=== PATIENT | female | born 1955 | race Caucasian/White ===

== ENCOUNTER 2016-08-21 09:42 | Emergency (ER) | payer OTHER ==
--- NOTE | 2016-08-21 09:51 | PDOC ---
History of Present Illness - General Stated Complaint: CHEST PAIN, RT SIDE NUMBNESS Time Seen by Provider: 08/21/16 09:46 Past History - Past Medical History Allergies/Adverse Reactions: Allergies Allergy/AdvReac Type Severity Reaction Status Date / Time No Known Allergies Allergy Verified 08/21/16 09:58 Home Medications: Ambulatory Orders Ranitidine [Zantac -] 150 mg PO BID #21 tablet 08/21/16 - Psycho/Social/Smoking Cessation Hx Suicidal Ideation: No Smoking History: Never smoked Hx Alcohol Use: No Drug/Substance Use Hx: No *Physical Exam - Vital Signs Last Vital Signs Temp Pulse Resp BP Pulse Ox 97.9 F 69 16 130/77 97 08/21/16 13:57 08/21/16 13:57 08/21/16 13:57 08/21/16 13:57 08/21/16 13:57 Heart Score/ECG Review - ECG Impressions Comment:: 08/21/16 10:44 Twelve-lead EKG was performed and reviewed by me. There is normal sinus rhythm with a normal rate. Rate of 67 The axis is normal. The intervals are normal. There is normal R wave progression There are no ST or T wave abnormalities. Impression: Normal twelve-lead EKG ED Treatment Course - LABORATORY CBC & Chemistry Diagram: 08/21/16 10:45 08/21/16 10:45 - ADDITIONAL ORDERS Additional order review: 08/21/16 10:45 RBC 4.71 MCV 91.2 MCHC 33.4 RDW 12.5 MPV 9.8 Neutrophils % 59.9 Lymphocytes % 26.7 Monocytes % 10.6 H Eosinophils % 1.9 Basophils % 0.9 - RADIOLOGY Radiology Studies Ordered: Category Date Time Status RIBS BILATERAL [RAD] Stat Radiology 08/21/16 10:36 Completed SPINE-THORACIC [RAD] Stat Radiology 08/21/16 10:36 Completed - Medications Given in the ED: ED Medications Discontinued Medications Generic Name Dose Route Start Last Admin Trade Name Freq PRN Reason Stop Dose Admin Al Hydroxide/Mg Hydroxide 30 ml 08/21/16 11:35 08/21/16 12:24 Mylanta Suspension - PO 08/21/16 11:36 30 ml ONCE ONE Administration Famotidine/Sodium Chloride 20 50 mls @ 100 mls/hr 08/21/16 11:35 08/21/16 12:24 mg/ Miscellaneous IVPB 08/21/16 12:04 100 mls/hr ONCE ONE Administration Medical Decision Making - Medical Decision Making 08/21/16 10:37 The patient was seen and evaluated in conjunction with CAROLANN Pizano under my direct supervision, ancillary studies were reviewed. I agree with the plan as outlined by CAROLANN Pizano. 61y F no significant pmx presents with chest/abd pain. The patient was was climbing on a chair to reach something several days ago, and the chair tipped over and the pt fell, landing on her upper abdomen striking the back of the chair. he pt was feeling well prior to the fall and denies any dizzness, sob, cp , n/v. daughter notes the pt had been complaining of diarrhea the few days prior to the fall. The pt states the pain has been gradually getting worse over the past few days. The pt also endorses a tingling sensation to her the index through pinky on the left (non on her arm). Pt denies any headache, neck pain, back pain. n/v, lower abdominal pain, hip pain. The pt was able to ambulate the past few days. She also took some otc pain medication (aspirin 500mg) with mild improvement. pt denies any chest pain. on exam pt has mild tenderness to her upper thoracic back (~T3-4), tenderness to her b/l rib region - no signs of ecchymosis, erythema, stepoffs noted. abd is soft nontender without rebound/guarding, no signs of ecchymosis noted on back or abdomen. history taking in [facility] with assistance of daugther with permission of the patient will ck xrays of ribs/chest/thoracic spine will give meds for pain willc k labs and ekg to r/o acs suspect her sypmtoms are traumatic in nature 08/21/16 13:15 The patient is feeling improved. labs and xrays are negative suspect there is a combination of msk pain secondary to the fall as well as component of gerd will discharge the patient to fu with pmd return precautions were discussed I discussed the physical exam findings, ancillary test results and final diagnoses with the patient. I answered all of the patient's questions. The patient was satisfied with the care received and felt comfortable with the discharge plan and treatment plan. The patient will call their primary care physician within 24 hours to arrange follow-up and will return to the Emergency Department with any new, persistent or worsening symptoms. *DC/Admit/Observation/Transfer Diagnosis at time of Disposition: GERD (gastroesophageal reflux disease) - Discharge Dispostion Disposition: HOME Condition at time of disposition: Improved - Prescriptions Prescriptions: Ranitidine [Zantac -] 150 mg PO BID #21 tablet - Referrals Referrals: Lucas Swanson [Primary Care Provider] - - Patient Instructions Printed Discharge Instructions: DI for Gastroesophageal Reflux Disease (GERD), DI for Atypical Chest Pain Additional Instructions: You have acid reflux. Avoid eating spicy foods. You can take Zantac once a day to help with the symptoms. Your x-rays done today in the ED did not show any fractures. Drink plenty of water. Follow up with your primary care doctor in one week. If you have worsening chest pain, shortness of breath or nausea or vomiting, return to the ED
[2016-08-21 10:06] VITALS: BMI 34.6
[2016-08-21 11:18] LABS: BASOPHIL 0.9 % (0-2.0); EOSINOPHIL 1.9 % (0-4.5); MCH 30.5 pg (25.7-33.7); MCHC 33.4 g/dl (32.0-36.0); MEAN CELL VOLUME 91.2 fl (80-96); MEAN PLT VOLUME 9.8 fl (7.5-11.1); NEUTROPHILS 59.9 % (42.8-82.8); PLATELET COUNT 231 K/MM3 (134-434); RDW 12.5 % (11.6-15.6); WHITE BLOOD COUNT 4.5 K/mm3 (4.0-10.0)
--- NOTE | 2016-08-21 11:33 | PDOC ---
History of Present Illness - General Chief Complaint: Chest Pain Stated Complaint: CHEST PAIN, RT SIDE NUMBNESS Time Seen by Provider: 08/21/16 09:46 History Source: Family (Daughter, translating for mother) - History of Present Illness Initial Comments: 08/21/16 11:33 Ms. Wilson is a 61 y/o female with no significant PMH presenting to the ED today complaining of chest pain. Her primary language is Abrahamsi, her daughter is available to translate. Pt. states that two days ago she was getting up out of a chair felt a little dizzy, and fell against the arms of the chair. She states she landed on her ribs. She is complaining of chest pain that is now radiating to her left arm, and back with some numbness in her left arm. Her pain is a 6/ 10 and she describes it as a burning pain. Pt. denies N/V/D, palpitations, SOB, wheezing and cough. No recent sick contacts. Denies fevers, chills, or weight change. Past History - Past Medical History Allergies/Adverse Reactions: Allergies Allergy/AdvReac Type Severity Reaction Status Date / Time No Known Allergies Allergy Verified 08/21/16 09:58 Home Medications: Ambulatory Orders NK [No Known Home Medication] 08/21/16 Other medical history: none - Psycho/Social/Smoking Cessation Hx Anxiety: No Suicidal Ideation: No Smoking History: Never smoked Have you smoked in the past 12 months: No Information on smoking cessation initiated: No Hx Alcohol Use: No Drug/Substance Use Hx: No Substance Use Type: None *Physical Exam - Vital Signs Last Vital Signs Temp Pulse Resp BP Pulse Ox 97.0 F L 76 20 128/76 98 08/21/16 09:50 08/21/16 10:09 08/21/16 10:09 08/21/16 10:09 08/21/16 10:09 - Physical Exam Comments: 08/21/16 11:49 GENERAL: The patient is awake, alert, and fully oriented, in no acute distress. HEAD: Normal with no signs of trauma. ENT: Pupils equal, round and reactive to light, extraocular movements intact, sclera anicteric, conjunctiva clear. Neck supple. LUNGS: Clear to auscultation bilaterally. Normal excursion. No respiratory distress or use of accessory muscles. CV: RRR, S1/S2, no MRG. Cap refill < 2 sec. Pain with palpation of the ribs on the L side more than the right. ABDOMEN: Soft, non-distended, non-tender. EXTREMITIES: Normal range of motion, no edema. NEUROLOGICAL: Normal speech, normal gait. CN II-XII grossly intact. PSYCH: Normal mood, normal affect. SKIN: Warm, dry, normal turgor, no rashes or lesions noted. ED Treatment Course - LABORATORY CBC & Chemistry Diagram: 08/21/16 10:45 08/21/16 10:45 Medical Decision Making - Medical Decision Making 08/21/16 11:51 Pt. is a 61 y/o female presenting with chest pain after questionable mechanical fall at home. Will r/o trauma, ACS, an altered mental status or GI issue . Less likely an infection. 1. Will order CBC, CMP, UA, to evaluate for infection 2. EKG and Cardiac panel to r/o ACS 3. CXR, Rib x-ray to evaluate for trauma. 4. Will medicate for pain. Will re-evaluate. 08/21/16 12:40 EKG shows a sinus rhythm. No acute ischemic changes. Troponins are negative. 08/21/16 13:07 Pt. is feeling much better after the GI cocktail. She reports her pain is significantly less at this time. X-ray of the ribs show a potential rotator cuff tear. Pt. does not recall an injury but reports her R shoulder always hurting and that pain is different from the pain she was experiencing today. 08/21/16 13:45 Thoracic x-ray shows no fracture at this time. Likely MSK pain with GERD. Will plan to discharge home at this time. *DC/Admit/Observation/Transfer Diagnosis at time of Disposition: Gastroesophageal reflux disease Qualifiers: Esophagitis presence: esophagitis presence not specified Qualified Code(s): K21.9 - Gastro-esophageal reflux disease without esophagitis - Discharge Dispostion Disposition: HOME Condition at time of disposition: Improved Admit: No - Patient Instructions Printed Discharge Instructions: DI for Atypical Chest Pain, DI for Gastroesophageal Reflux Disease (GERD) Additional Instructions: You have acid reflux. Avoid eating spicy foods. You can take Zantac once a day to help with the symptoms. Your x-rays done today in the ED did not show any fractures. Drink plenty of water. Follow up with your primary care doctor in one week. If you have worsening chest pain, shortness of breath or nausea or vomiting, return to the ED
[2016-08-21] MEDS ORDERED: MAG HYDROX/AL HYDROX/SIMETH 355 ML ORAL.SUSP PO ONE (11:35)
[2016-08-21] MEDS ORDERED: FAMOTIDINE 20 MG/50 ML IVPB 20 MG in PREMIX 50 IVPB ONE (11:35)
[2016-08-21] MEDS ORDERED: MAG HYDROX/AL HYDROX/SIMETH 30 ML UNIT-DOSE CUP ONE (11:39)
[2016-08-21] MEDS ORDERED: FAMOTIDINE 20 MG/50 ML IVPB 50 ML IVPB ONE (11:39)
[2016-08-21 11:43] LABS: TROPONIN I < 0.02 ng/ml (0.00-0.05)
[2016-08-21 11:43] LABS: BILIRUBIN,TOTAL 0.4 mg/dL (0.2-1.0); CALCIUM 9.2 mg/dL (8.5-10.1); TOT PROT 7.9 g/dl (6.4-8.2)
[2016-08-21 13:22] LABS: URINE APPEARANCE CLEAR; URINE BILIRUBIN NEGATIVE (NEGATIVE); URINE BLOOD NEGATIVE (NEGATIVE); URINE COLOR STRAW; URINE GLUCOSE (UA) NEGATIVE (NEGATIVE); URINE KETONE NEGATIVE (NEGATIVE); URINE LEUK ESTERASE NEGATIVE (NEGATIVE); URINE NITRITE NEGATIVE (NEGATIVE); URINE PROTEIN NEGATIVE (NEGATIVE); URINE UROBILINOGEN NEGATIVE E.U./dl (0.2-1.0)
[2016-08-21 14:01] VITALS: BP 130/77; PULSE 69; TEMP 97.9
--- NOTE | 2016-08-21 15:46 | EKG ---
Test Reason : Blood Pressure : / mmHG Vent. Rate : 067 BPM Atrial Rate : 067 BPM P-R Int : 156 ms QRS Dur : 070 ms QT Int : 378 ms P-R-T Axes : 013 -02 032 degrees QTc Int : 399 ms NORMAL SINUS RHYTHM NORMAL ECG NO PREVIOUS ECGS AVAILABLE Confirmed by KIERRA ELIAS MD ([id number]) on 08/21/2016 3:46:01 PM Referred By: Confirmed By:KIERRA ELIAS MD
== END 2016-08-21 14:26 | disposition home or self-care (01) ==
LOC: JER 09:42
PROC: 3E033GC Introduction of Other Therapeutic Substance into Peripheral Vein, Percutaneous Approach (ICD-10-PCS; principal; 2016-08-21)
DX: G21.9 Secondary parkinsonism, unspecified (principal); M54.6 Pain in thoracic spine; W07.XXXA Fall from chair, initial encounter; Y93.89 Activity, other specified; Y92.038 Other place in apartment as the place of occurrence of the external cause
CPT/HCPCS: 36415; 71010-TC; 71111-TC; 72070-TC; 80053; 81003; 82550; 84484; 85025; 93005; 93010; 96365; 99285-25

== ENCOUNTER → 2017-02-20 | Emergency (ER) | payer OTHER ==
[~2017-02-20] MED LIST: ACETAMINOPHEN 325 MG TABLET (FP) ONE; ACETAMINOPHEN 500 MG TABLET (FP) PO ONE
[2017-02-20 21:19] VITALS: BP 142/72; PULSE 70; TEMP 97.9; BMI 33.9
--- NOTE | 2017-02-20 23:42 | PDOC ---
History of Present Illness - History of Present Illness Initial Comments: 02/20/17 23:54 61 year old female with no PMHx who presents to the ED with an episode of vomiting 3 days ago and right scapular pain, chest pain and abdominal pain for 3 days. Patient reports taking Tylenol and Motrin with no relief. Denies diarrhea, constipation. Allergies: Penicillin <Irene Sauceda - Last Filed: 02/20/17 23:54> <Dora Mensah - Last Filed: 02/21/17 00:50> - General Chief Complaint: Back Pain Stated Complaint: BACK PAIN Time Seen by Provider: 02/20/17 22:51 Past History <Irene Sauceda - Last Filed: 02/20/17 23:54> - Psycho/Social/Smoking Cessation Hx Anxiety: No Suicidal Ideation: No Smoking History: Never smoked Have you smoked in the past 12 months: No Hx Alcohol Use: No Drug/Substance Use Hx: No Substance Use Type: None <Dora Mensah - Last Filed: 02/21/17 00:50> - Past Medical History Allergies/Adverse Reactions: Allergies Allergy/AdvReac Type Severity Reaction Status Date / Time amoxicillin Allergy Verified 02/20/17 21:11 Home Medications: Ambulatory Orders NK [No Known Home Medication] 02/21/17 Review of Systems - Review of Systems Comments:: 02/20/17 23:54 CONSTITUTIONAL: Absent: fever, no chills, no fatigue EYES: Absent: visual changes ENT: Absent: ear pain, no sore throat CARDIOVASCULAR: Present: chest pain Absent: palpitations RESPIRATORY: Absent: cough, no SOB GI: Present: abdominal pain, vomiting Absent: constipation, no diarrhea GENITOURINARY: Absent: dysuria, no frequency, no hematuria MUSCULOSKELETAL: Present: right scapular pain Absent: back pain, no myalgia SKIN: Absent: rash NEURO: Absent: headache <Irene Sauceda - Last Filed: 02/20/17 23:54> *Physical Exam - Vital Signs Last Vital Signs Temp Pulse Resp BP Pulse Ox 97.9 F 70 18 142/72 98 02/20/17 21:11 02/20/17 21:11 02/20/17 21:11 02/20/17 21:11 02/20/17 21:11 - Physical Exam Comments: 02/20/17 23:54 GENERAL: Well-appearing, well-nourished. No apparent distress. HEENT: Normocephalic, atraumatic. PERRL, EOM intact. CARDIOVASCULAR: Normal S1, S2. Regular rate and rhythm. PULMONARY: Clear to auscultation bilaterally. ABDOMEN: Protuberant. Soft, non-tender. No guarding, no rebound. EXTREMITIES: Bilateral foot deformity since . Normal ROM in all four extremities. SKIN: Warm, dry. No rash NEUROLOGICAL: No focal neurological deficits. <Irene Sauceda - Last Filed: 02/20/17 23:54> - Vital Signs Last Vital Signs Temp Pulse Resp BP Pulse Ox 97.9 F 70 18 142/72 98 02/20/17 21:11 02/20/17 21:11 02/20/17 21:11 02/20/17 21:11 02/20/17 21:11 <Dora Mensah - Last Filed: 02/21/17 00:50> *DC/Admit/Observation/Transfer - Attestations Scribe Attestion: 02/20/17 23:54 Documentation prepared by Irene Sauceda, acting as manager medical affairs for Dora Mensah MD. <Irene Sauceda - Last Filed: 02/20/17 23:54> <Dora Mensah - Last Filed: 02/21/17 00:50> Diagnosis at time of Disposition: Back pain Qualifiers: Back pain location: thoracic back pain Chronicity: chronic Back pain laterality : right Qualified Code(s): M54.6 - Pain in thoracic spine; G89.29 - Other chronic pain - Discharge Dispostion Disposition: HOME Condition at time of disposition: Stable - Referrals Referrals: Lucas Swanson [Primary Care Provider] - - Patient Instructions Printed Discharge Instructions: DI for Thoracic Back Pain Additional Instructions: please follow up with your regular physician return for any worsening symptoms
--- NOTE | 2017-02-21 13:21 | EKG ---
Test Reason : Blood Pressure : / mmHG Vent. Rate : 067 BPM Atrial Rate : 067 BPM P-R Int : 168 ms QRS Dur : 078 ms QT Int : 392 ms P-R-T Axes : 034 008 031 degrees QTc Int : 414 ms NORMAL SINUS RHYTHM NORMAL ECG WHEN COMPARED WITH ECG OF 21-AUG-2016 09:58, NO SIGNIFICANT CHANGE WAS FOUND Confirmed by AMOS SINGH MD ([id number]) on 02/21/2017 1:20:53 PM Referred By: Confirmed By:AMOS SINGH MD
== END | disposition home or self-care (01) ==
LOC: JER 21:06
DX: M54.6 Pain in thoracic spine (principal); G89.29 Other chronic pain
CPT/HCPCS: 93005; 93010; 99282-25

== ENCOUNTER 2017-09-02 13:44 | Emergency (ER) | payer OTHER ==
[2017-09-02 14:14] VITALS: BMI 28.3
--- NOTE | 2017-09-02 14:55 | PDOC ---
History of Present Illness - General History Source: Patient Exam Limitations: No Limitations - History of Present Illness Initial Comments: 09/02/17 16:24 The patient is a 62-year-old female with no significant past medical history, and presents to the emergency department with dizziness, nausea, and vomiting since last night. Patient speaks Farsi and her daughter translated. She reports she was laying in bed when she began to feel like the room was spinning, which was followed by nausea and vomiting. She reports 4 episodes of non-bloody vomiting of a yellow substance. She also notes mild diffuse mid-epigastric abdominal pain that is reproducible with touch. She states the nausea and dizziness is worse when supine and when moving her eyes. She reports associated visual changes. She did not take any medication for this. She states this is not the first time this has happened. The patient denies chest pain, shortness of breath, and headache. The patient denies fever, chills, ear pain, diarrhea and constipation. Denies fall, syncope , or LOC. The patient denies dysuria, frequency, urgency and hematuria. Allergies: amoxicillin Past Surgical History: None reported Social History: No toxic habits reported PCP: Dr. Swanson <Una Montes - Last Filed: 09/02/17 16:24> <Devorah Lei - Last Filed: 09/02/17 19:06> - General Chief Complaint: Nausea/Vomiting Stated Complaint: FEVER, DIZZINESS Time Seen by Provider: 09/02/17 14:55 Past History <Una Montes - Last Filed: 09/02/17 16:24> - Past Medical History COPD: No - Suicide/Smoking/Psychosocial Hx Smoking History: Never smoked Have you smoked in the past 12 months: No Hx Alcohol Use: No Drug/Substance Use Hx: No Substance Use Type: None <Devorah Lei - Last Filed: 09/02/17 19:06> - Past Medical History Allergies/Adverse Reactions: Allergies Allergy/AdvReac Type Severity Reaction Status Date / Time amoxicillin Allergy Verified 09/02/17 14:14 Home Medications: Ambulatory Orders Meclizine HCl 25 mg PO QID PRN #30 tab.chew 09/02/17 Ondansetron [Zofran Odt -] 4 mg SL TID PRN #10 od.tablet 09/02/17 Review of Systems - Review of Systems Able to Perform ROS?: Yes Comments:: 09/02/17 16:24 GENERAL/CONSTITUTIONAL: No fever or chills. No weakness. HEAD, EYES, EARS, NOSE AND THROAT: No ear pain or discharge. No sore throat. CARDIOVASCULAR: No chest pain or shortness of breath. RESPIRATORY: No cough, wheezing, or hemoptysis. GASTROINTESTINAL: (+) Nausea, (+) vomiting. No diarrhea or constipation. GENITOURINARY: No dysuria, frequency, or change in urination. MUSCULOSKELETAL: No joint or muscle swelling or pain. No neck or back pain. SKIN: No rash NEUROLOGIC: (+) Dizziness. (+) Vertigo. No headache, loss of consciousness, or change in strength/sensation. ENDOCRINE: No increased thirst. No abnormal weight change. HEMATOLOGIC/LYMPHATIC: No anemia, easy bleeding, or history of blood clots. ALLERGIC/IMMUNOLOGIC: No hives or skin allergy. <Montes,Una - Last Filed: 09/02/17 16:24> *Physical Exam - Vital Signs Last Vital Signs Temp Pulse Resp BP Pulse Ox 97.7 F 79 18 135/79 99 09/02/17 14:11 09/02/17 14:11 09/02/17 14:11 09/02/17 14:11 09/02/17 14:11 - Physical Exam Comments: 09/02/17 16:24 GENERAL: Awake, alert and oriented x3, in no acute distress HEAD: No signs of trauma EYES: PERRLA, EOMI, sclera anicteric, conjunctiva clear ENT: Auricles normal inspection, hearing grossly normal, nares patent, oropharynx clear without exudates. Moist mucosa. (+) TM are impacted with cerumen bilaterally. NECK: Normal ROM, supple, no lymphadenopathy, JVD, or masses LUNGS: Breath sounds equal, clear to auscultation bilaterally. No wheezes, and no crackles HEART: Regular rate and rhythm, normal S1 and S2, no murmurs, rubs or gallops ABDOMEN: Soft, nontender, non-distended, normoactive bowel sounds. No guarding , no rebound. No masses EXTREMITIES: Normal range of motion, no edema. No clubbing or cyanosis. No cords, erythema, or tenderness NEUROLOGICAL: Cranial nerves II through XII grossly intact. Normal speech, normal gait. 5/5 strength in bilateral upper and lower extremities. Intact rapid alternating movements. Heel goldstein normal. Ambulatory with steady gait. SKIN: Warm, Dry, normal turgor, no rashes or lesions noted. <Una Montes - Last Filed: 09/02/17 16:24> - Vital Signs Last Vital Signs Temp Pulse Resp BP Pulse Ox 97.7 F 79 18 135/79 99 09/02/17 14:11 09/02/17 14:11 09/02/17 14:11 09/02/17 14:11 09/02/17 14:11 <Devorah Lei - Last Filed: 09/02/17 19:06> ED Treatment Course - LABORATORY CBC & Chemistry Diagram: 09/02/17 15:45 09/02/17 15:45 - ADDITIONAL ORDERS Additional order review: 09/02/17 15:45 RBC 4.81 MCV 85.8 MCHC 33.5 RDW 12.9 MPV 8.6 D Neutrophils % 69.3 Lymphocytes % 24.8 Monocytes % 4.1 Eosinophils % 1.2 Basophils % 0.6 - Medications Given in the ED: ED Medications Discontinued Medications Generic Name Dose Route Start Last Admin Trade Name Freq PRN Reason Stop Dose Admin Meclizine HCl 25 mg 09/02/17 15:43 09/02/17 16:15 Antivert - PO 09/02/17 15:44 25 mg ONCE ONE Administration Ondansetron HCl 4 mg 09/02/17 15:43 09/02/17 15:56 Zofran Injection IVPUSH 09/02/17 15:44 4 mg ONCE ONE Administration <Una Montes - Last Filed: 09/02/17 16:24> - LABORATORY CBC & Chemistry Diagram: 09/02/17 15:45 09/02/17 15:45 <Devorah Lei - Last Filed: 09/02/17 19:06> Medical Decision Making - Medical Decision Making 09/02/17 17:54 Pt present to the ED complaining of vertigo that started yesterday, accompanied by nausea and multiple episodes of vomiting. Patient has a history of similar episodes in the past that have resolved spontaneously. PAtient is able to ambulate with a steady gait and is neurologically intact. Vertigo is very positional. Symptoms are most consistent with BPV. Given meclizine and zogran without relief of her symptoms. Will treat with reglan and ativan and reassess. Will admit for observation if symptoms persist. 09/02/17 18:36 Patient feels improved and ready to go home. WIll discharge home with rx for meclizine and zofran. Instructed to follow up with her PMD tomorrow AM. <Devorah Lei - Last Filed: 09/02/17 19:06> *DC/Admit/Observation/Transfer - Attestations Scribe Attestion: 09/02/17 16:25 Documentation prepared by Una Montes, acting as medical assisting program director for Devorah Lei MD, /DO. <Una Montes - Last Filed: 09/02/17 16:24> - Discharge Dispostion Admit: No <Devorah Lei - Last Filed: 09/02/17 19:06> Diagnosis at time of Disposition: Vertigo - Discharge Dispostion Disposition: HOME Condition at time of disposition: Good - Prescriptions Prescriptions: Meclizine HCl 25 mg PO QID PRN #30 tab.chew PRN Reason: Vertigo Ondansetron [Zofran Odt -] 4 mg SL TID PRN #10 od.tablet PRN Reason: Nausea And/Or Vomiting - Referrals Referrals: Lucas Swanson [Primary Care Provider] - - Patient Instructions Printed Discharge Instructions: DI for Vertigo Additional Instructions: return to the ED for severe headache, severe nausea and vomiting, unable to walk , weakness on one side of your body or face, other new or changing symptoms. Follow up with your doctor tomorrow AM. - Post Discharge Activity Forms/Work/School Notes: Back to Work, Parent(s) Back to Work Note
[2017-09-02] MEDS ORDERED: MECLIZINE HCL 25 MG TABLET (FP) PO ONE (15:43)
[2017-09-02] MEDS ORDERED: ONDANSETRON 4 MG/2 ML VIAL IVPUSH ONE (15:43)
[2017-09-02] MEDS ORDERED: ONDANSETRON 4 MG/2 ML VIAL ONE (15:52)
[2017-09-02] MEDS ORDERED: MECLIZINE HCL 25 MG TABLET (FP) ONE (15:52)
[2017-09-02 15:56] LABS: BASO % 0.6 % (0-2.0); EOS % 1.2 % (0-4.5); HEMATOCRIT 41.2 % (32.4-45.2); HEMOGLOBIN 13.8 GM/dL (10.7-15.3); LYMPH % 24.8 % (8-40); MCH 28.8 pg (25.7-33.7); MCHC 33.5 g/dl (32.0-36.0); MEAN CELL VOLUME 85.8 fl (80-96); MEAN PLT VOLUME 8.6 fl (7.5-11.1); MONO % 4.1 % (3.8-10.2); NEUT % 69.3 % (42.8-82.8); PLATELET COUNT 188 K/MM3 (134-434); RBC 4.81 M/mm3 (3.60-5.2); RDW 12.9 % (11.6-15.6); WHITE BLOOD COUNT 6.7 K/mm3 (4.0-10.0)
[2017-09-02 16:38] LABS: ALBUMIN 4.3 g/dl (3.4-5.0); ANION GAP 9 (8-16); BILIRUBIN,TOTAL 0.3 mg/dL (0.2-1.0); BLOOD UREA NITROGEN 18 mg/dL (7-18); CALCIUM 8.5 mg/dL (8.5-10.1); CHLORIDE 108 mmol/L (98-107); CO2 22 mmol/L (21-32); CREATININE 0.6 mg/dL (0.55-1.02); GLUCOSE,RANDOM 99 mg/dL (74-106); POTASSIUM 4.2 mmol/L (3.5-5.1); SGOT/AST 15 U/L (15-37); SGPT/ALT 15 U/L (12-78); SODIUM 139 mmol/L (136-145); TOT PROT 7.6 g/dl (6.4-8.2)
[2017-09-02 16:39] LABS: ALK PHOS 112 U/L (45-117)
[2017-09-02] MEDS ORDERED: diazePAM CARPU-JECT 10 MG/2 ML DISP.SYRIN IVPUSH ONE (17:01)
[2017-09-02] MEDS ORDERED: METOCLOPRAMIDE HCL INJECTION 10 MG/2 ML VIAL IVPUSH ONE (17:01)
[2017-09-02] MEDS ORDERED: METOCLOPRAMIDE HCL INJECTION 10 MG/2 ML VIAL ONE (17:40)
[2017-09-02] MEDS ORDERED: SODIUM CHLORIDE 0.9% 500 ML INFUS.BAG IV ONE (18:03)
[2017-09-02 19:18] VITALS: BP 126/77; PULSE 68; TEMP 98.2
--- NOTE | 2017-09-03 23:26 | EKG ---
Test Reason : Blood Pressure : / mmHG Vent. Rate : 060 BPM Atrial Rate : 060 BPM P-R Int : 176 ms QRS Dur : 080 ms QT Int : 448 ms P-R-T Axes : 034 063 077 degrees QTc Int : 448 ms NORMAL SINUS RHYTHM NORMAL ECG WHEN COMPARED WITH ECG OF 21-FEB-2017 00:22, T WAVE VARIATION Confirmed by KIERRA ELIAS MD ([id number]) on 09/03/2017 11:26:01 PM Referred By: Confirmed By:KIERRA ELIAS MD
== END 2017-09-02 19:18 | disposition home or self-care (01) ==
LOC: JER 13:44
PROC: 3E033NZ Introduction of Analgesics, Hypnotics, Sedatives into Peripheral Vein, Percutaneous Approach (ICD-10-PCS; principal; 2017-09-02)
PROC: 3E033GC Introduction of Other Therapeutic Substance into Peripheral Vein, Percutaneous Approach (ICD-10-PCS; 2017-09-02)
PROC: 3E033GC Introduction of Other Therapeutic Substance into Peripheral Vein, Percutaneous Approach (ICD-10-PCS; 2017-09-02)
DX: H81.10 Benign paroxysmal vertigo, unspecified ear (principal)
CPT/HCPCS: 36415; 80053; 85025; 93005; 93010; 96374; 96375; 99283-25

== ENCOUNTER 2017-09-11 19:37 | Emergency (ER) | payer OTHER ==
[2017-09-11 19:48] VITALS: BP 143/76; PULSE 73; TEMP 97.9; BMI 24.7
--- NOTE | 2017-09-11 19:51 | PDOC ---
Rapid Medical Evaluation Chief Complaint: Cold Symptoms Time Seen by Provider: 09/11/17 19:49 Medical Evaluation: Allergies Allergy/AdvReac Type Severity Reaction Status Date / Time amoxicillin Allergy Verified 09/11/17 19:44 Vital Signs Temp Pulse Resp BP Pulse Ox 97.9 F 73 20 143/76 97 09/11/17 19:44 09/11/17 19:44 09/11/17 19:44 09/11/17 19:44 09/11/17 19:44 09/11/17 19:50 I have performed a brief in-person evaluation of this patient. The patient presents with a chief complaint of: productive cough x 1 week Pertinent physical exam findings: Lungs CTAB. I have ordered the following: CXR The patient will proceed to the ED for further evaluation. Discharge Disposition - Diagnosis Cough - Referrals - Patient Instructions - Post Discharge Activity
--- NOTE | 2017-09-11 21:13 | PDOC ---
History of Present Illness - General Chief Complaint: Cold Symptoms Stated Complaint: COUGHING Time Seen by Provider: 09/11/17 19:49 History Source: Patient Exam Limitations: No Limitations - History of Present Illness Initial Comments: 09/11/17 21:16 62-year-old female presents the ED with complaints of productive cough which she states is yellow and worsen in the a.m. hours. Patient denies chest pain, shortness of breath, fever, chills. Patient denies history of diabetes, smoking history, or pulmonary disease. Timing/Duration: reports: week Severity: reports: mild Possible Cause: Yes: no prior episodes Associated Symptoms: reports: cough Past History - Travel Traveled outside of the country in the last 30 days: No - Past Medical History Allergies/Adverse Reactions: Allergies Allergy/AdvReac Type Severity Reaction Status Date / Time amoxicillin Allergy Verified 09/11/17 19:44 Home Medications: Ambulatory Orders NK [No Known Home Medication] 09/11/17 COPD: No Other medical history: Pt denies - Suicide/Smoking/Psychosocial Hx Smoking History: Never smoked Have you smoked in the past 12 months: No Information on smoking cessation initiated: No Hx Alcohol Use: No Drug/Substance Use Hx: No Substance Use Type: None Patient Lives Alone: No Lives with/in: daughter Review of Systems - Review of Systems Able to Perform ROS?: Yes Respiratory: Yes: Productive cough *Physical Exam - Vital Signs Last Vital Signs Temp Pulse Resp BP Pulse Ox 97.9 F 73 20 143/76 97 09/11/17 19:44 09/11/17 19:44 09/11/17 19:44 09/11/17 19:44 09/11/17 19:44 - Physical Exam General Appearance: Yes: Nourished, Appropriately Dressed. No: Apparent Distress HEENT: positive: Pharynx Normal Neck: positive: Normal Thyroid, Supple Respiratory/Chest: positive: Lungs Clear, Normal Breath Sounds. negative: Respiratory Distress, Accessory Muscle Use Cardiovascular: positive: Regular Rhythm, Regular Rate. negative: Murmur Integumentary: positive: Normal Color, Warm, Moist Neurologic: positive: Motor Strength 5/5 (ambulatory) Medical Decision Making - Medical Decision Making 09/11/17 21:19 Patient here for productive cough for the past week. Patient ordered a chest x- ray from [facility]. Chest x-ray shows no signs of pneumonia. Patient be treated for bronchitis a peribronchial congestion seen on x-ray *DC/Admit/Observation/Transfer Diagnosis at time of Disposition: Cough, Bronchitis - Discharge Dispostion Disposition: HOME Condition at time of disposition: Good - Referrals Referrals: Meme Calles DO [Staff Physician] - - Patient Instructions Printed Discharge Instructions: DI for Acute Bronchitis Additional Instructions: Please take antibiotics as prescribed until completed. Next and please also follow up with referred PAINTING MACHINE OPERATOR to discuss scheduling a mammogram and PAINTING MACHINE OPERATOR exam. - Post Discharge Activity
== END 2017-09-11 21:27 | disposition home or self-care (01) ==
LOC: JERFT 19:37
DX: J40 Bronchitis, not specified as acute or chronic (principal)
CPT/HCPCS: 71046-TC-FY; 99281-25

== ENCOUNTER 2017-11-24 14:32 | Observation (INO) | payer OTHER ==
--- NOTE | 2017-11-24 14:50 | PDOC ---
History of Present Illness - General History Source: Family Exam Limitations: No Limitations - History of Present Illness Initial Comments: 11/24/17 15:51 The patient is a 62-year-old female, primarily Farsi-speaking, accompanied by daughter, with a significant past medical history of vertigo, who presents to the ED with 1 week of dizziness and chest pain. She describes her dizziness as the "room spinning." Dizziness is worse in the morning, when she is lying down, with positional changes, and when she turns her head. She reports 2 days of nausea and vomiting; no blood noted. For the past week the patient has been experiencing chest pain that radiates to her right breast. She denies having having a previous mammogram. The patient reports dysuria and headache. The patient denies any fever, chills, diarrhea, or abdominal pain. Denies any tunnel vision. Allergies: amoxicillin PCP: Dr. Lucas Swanson <Nadya Elder - Last Filed: 11/24/17 15:51> <Reba Bardales - Last Filed: 11/24/17 16:46> - General Chief Complaint: Lightheaded Stated Complaint: NAUSEA, DIZZINESS Time Seen by Provider: 11/24/17 14:49 Past History <Nadya Elder - Last Filed: 11/24/17 15:51> - Past Medical History COPD: No - Suicide/Smoking/Psychosocial Hx Smoking History: Never smoked Have you smoked in the past 12 months: No Hx Alcohol Use: No Drug/Substance Use Hx: No Substance Use Type: None <Reba Bardales - Last Filed: 11/24/17 16:46> - Past Medical History Allergies/Adverse Reactions: Allergies Allergy/AdvReac Type Severity Reaction Status Date / Time amoxicillin Allergy Verified 11/24/17 14:39 Home Medications: Ambulatory Orders Azithromycin [Zithromax Tri-Drake (3 DAYS) -] 500 mg PO DAILY #3 tablet 09/11/17 Review of Systems - Review of Systems Able to Perform ROS?: Yes Comments:: 11/24/17 15:52 GENERAL/CONSTITUTIONAL: No fever or chills. No weakness. HEAD, EYES, EARS, NOSE AND THROAT: No change in vision. No ear pain or discharge. No sore throat. CARDIOVASCULAR: (+)Chest pain. No shortness of breath. RESPIRATORY: No cough, wheezing, or hemoptysis. GASTROINTESTINAL: (+)Nausea, vomiting. No diarrhea or constipation. GENITOURINARY: (+)dysuria. No frequency, or change in urination. MUSCULOSKELETAL: No joint or muscle swelling or pain. No neck or back pain. SKIN: No rash NEUROLOGIC: (+)headache, vertigo. No loss of consciousness, or change in strength/sensation. ENDOCRINE: No increased thirst. No abnormal weight change. HEMATOLOGIC/LYMPHATIC: No anemia, easy bleeding, or history of blood clots. ALLERGIC/IMMUNOLOGIC: No hives or skin allergy. <Nadya Elder - Last Filed: 11/24/17 15:51> *Physical Exam - Vital Signs Last Vital Signs Temp Pulse Resp BP Pulse Ox 98.4 F 66 18 130/57 99 11/24/17 14:36 11/24/17 14:36 11/24/17 14:36 11/24/17 14:36 11/24/17 14:36 - Physical Exam Comments: 11/24/17 15:53 GENERAL: Awake, alert, and fully oriented, in no acute distress HEAD: No signs of trauma EYES: PERRLA, EOMI, sclera anicteric, conjunctiva clear. No nystagmus. ENT: Auricles normal inspection, hearing grossly normal, nares patent, oropharynx clear without exudates. Moist mucosa NECK: Normal ROM, supple, no lymphadenopathy, JVD, or masses LUNGS: Breath sounds equal, clear to auscultation bilaterally. No wheezes, and no crackles HEART: Regular rate and rhythm, normal S1 and S2, no murmurs, rubs or gallops ABDOMEN: (+)Mild diffuse tenderness. Soft, normoactive bowel sounds. No guarding, no rebound. No masses MSK: (+)Right rib pain under breast. No palpable masses. No peau d'orange. EXTREMITIES: Normal range of motion, no edema. No clubbing or cyanosis. No cords, erythema, or tenderness NEUROLOGICAL: Cranial nerves II through XII grossly intact. 5/5 strength in all extremities. Sensation intact. Normal speech, normal gait SKIN: Warm, Dry, normal turgor, no rashes or lesions noted <Nadya Elder - Last Filed: 11/24/17 15:51> - Vital Signs Last Vital Signs Temp Pulse Resp BP Pulse Ox 98.4 F 66 18 130/57 99 11/24/17 14:36 11/24/17 14:36 11/24/17 14:36 11/24/17 14:36 11/24/17 14:36 <Reba Bardales - Last Filed: 11/24/17 16:46> ED Treatment Course - LABORATORY CBC & Chemistry Diagram: 11/24/17 15:50 11/24/17 15:50 <Reba Bardales - Last Filed: 11/24/17 16:46> Medical Decision Making - Medical Decision Making 11/24/17 15:41 a/p: 62yo female with cp x 1 week intermittently, vertigo, R breast pain -hx of vertigo but now with a drake and feels weaker on the R side -nonfocal neuro exam -no nystagmus and no increasing dizziness with eye movement -R rib ttp under the breast tissue, no masses palpated -intermittnet cp during this last week that the patient cannot describe -mild diffuse abd pain -will obtain labs, ekg, cxr, head ct -will monitor and reassess -tele monitoring 11/24/17 16:45 pt will be signed out to the oncoming ED physician pending labs, head ct and further eval of cp. will most likely need obs overnight for further eval <Reba Bardales - Last Filed: 11/24/17 16:46> *DC/Admit/Observation/Transfer - Attestations Scribe Attestion: 11/24/17 15:57 Documentation prepared by Nadya Elder, acting as medical doctor for Reba Bardales DO. <Nadya Elder - Last Filed: 11/24/17 15:51> - Attestations Physician Attestion: 11/24/17 16:46 I, Dr. Reba Bardales DO, attest that this document has been prepared under my direction and personally reviewed by me in its entirety. I further attest, that it accurately reflects all work, treatment, procedures and medical decision -making performed by me. <Reba Bardales - Last Filed: 11/24/17 16:46> Diagnosis at time of Disposition: Vertigo, Chest pain - Referrals Referrals: Lucas Swanson [Primary Care Provider] - - Patient Instructions - Post Discharge Activity
[2017-11-24] MEDS ORDERED: METOCLOPRAMIDE HCL INJECTION 10 MG/2 ML VIAL IVPUSH ONE (15:10)
[2017-11-24] MEDS ORDERED: SODIUM CHLORIDE 0.9% 1000 ML INFUS.BAG IV ONE (15:10)
[2017-11-24] MEDS ORDERED: MECLIZINE HCL 12.5 MG TABLET PO ONE (15:16)
[2017-11-24] MEDS ORDERED: METOCLOPRAMIDE HCL INJECTION 10 MG/2 ML VIAL ONE (16:08)
[2017-11-24] MEDS ORDERED: MECLIZINE HCL 12.5 MG TABLET ONE (16:08)
[2017-11-24 16:09] LABS: BASO % 0.8 % (0-2.0); HEMATOCRIT 36.6 % (32.4-45.2); HEMOGLOBIN 12.7 GM/dL (10.7-15.3); LYMPH % 40.5 % (8-40); MCH 29.5 pg (25.7-33.7); MCHC 34.6 g/dl (32.0-36.0); MEAN CELL VOLUME 85.1 fl (80-96); MEAN PLT VOLUME 8.8 fl (7.5-11.1); MONO % 7.2 % (3.8-10.2); NEUT % 47.5 % (42.8-82.8); PLATELET COUNT 169 K/MM3 (134-434); RBC 4.29 M/mm3 (3.60-5.2); RDW 13.1 % (11.6-15.6); WHITE BLOOD COUNT 5.6 K/mm3 (4.0-10.0)
[2017-11-24 16:24] LABS: URINE APPEARANCE CLEAR; URINE BILIRUBIN NEGATIVE (<2.0 mg/dL); URINE COLOR LTYELLOW; URINE GLUCOSE (UA) NEGATIVE (NEGATIVE); URINE KETONE NEGATIVE (NEGATIVE); URINE LEUK ESTERASE NEGATIVE (NEGATIVE); URINE NITRITE NEGATIVE (NEGATIVE); URINE PROTEIN NEGATIVE (NEGATIVE)
[2017-11-24 16:24] LABS: ALBUMIN 3.6 g/dl (3.4-5.0); ANION GAP 6 (8-16); BILIRUBIN,TOTAL 0.3 mg/dL (0.2-1.0); BLOOD UREA NITROGEN 15 mg/dL (7-18); CALCIUM 7.9 mg/dL (8.5-10.1); CHLORIDE 108 mmol/L (98-107); CO2 26 mmol/L (21-32); CREATININE 0.7 mg/dL (0.55-1.02); GLUCOSE,RANDOM 135 mg/dL (74-106); SGPT/ALT 11 U/L (12-78); SODIUM 140 mmol/L (136-145); TOT PROT 6.9 g/dl (6.4-8.2)
[2017-11-24 16:27] LABS: ALK PHOS 98 U/L (45-117)
[2017-11-24 16:29] LABS: MAGNESIUM 2.3 mg/dL (1.8-2.4); POTASSIUM 4.2 mmol/L (3.5-5.1); SGOT/AST 20 U/L (15-37)
--- NOTE | 2017-11-24 19:21 | PDOC ---
*Physical Exam - Vital Signs Last Vital Signs Temp Pulse Resp BP Pulse Ox 98.4 F 58 L 18 121/61 100 11/24/17 14:36 11/24/17 18:35 11/24/17 14:36 11/24/17 18:35 11/24/17 18:35 ED Treatment Course - LABORATORY CBC & Chemistry Diagram: 11/24/17 15:50 11/24/17 15:50 - ADDITIONAL ORDERS Additional order review: Laboratory Results 11/24/17 11/24/17 16:15 15:50 Sodium 140 Potassium 4.2 Chloride 108 H Carbon Dioxide 26 Anion Gap 6 L BUN 15 Creatinine 0.7 Creat Clearance w eGFR > 60 Random Glucose 135 H Calcium 7.9 L Magnesium 2.3 Total Bilirubin 0.3 AST 20 ALT 11 L Alkaline Phosphatase 98 Creatine Kinase 113 Troponin I < 0.02 Total Protein 6.9 Albumin 3.6 Urine Color Ltyellow Urine Appearance Clear Urine pH 6.0 Ur Specific [place] 1.017 Urine Protein Negative Urine Glucose (UA) Negative Urine Ketones Negative Urine Blood Negative Urine Nitrite Negative Urine Bilirubin Negative Urine Urobilinogen 2.0 H Ur Leukocyte Esterase Negative 11/24/17 15:50 RBC 4.29 MCV 85.1 MCHC 34.6 RDW 13.1 MPV 8.8 Neutrophils % 47.5 D Lymphocytes % 40.5 H D Monocytes % 7.2 Eosinophils % 4.0 D Basophils % 0.8 - Medications Given in the ED: ED Medications Discontinued Medications Generic Name Dose Route Start Last Admin Trade Name Freq PRN Reason Stop Dose Admin Meclizine HCl 12.5 mg 11/24/17 15:16 11/24/17 16:05 Antivert - PO 11/24/17 15:17 12.5 mg ONCE ONE Administration Metoclopramide HCl 10 mg 11/24/17 15:10 11/24/17 16:05 Reglan Injection - IVPUSH 11/24/17 15:11 10 mg ONCE ONE Administration Sodium Chloride 1,000 ml 11/24/17 15:10 11/24/17 16:05 Normal Saline - IV 11/24/17 15:11 1,000 ml ONCE ONE Administration Medical Decision Making - Medical Decision Making 11/24/17 19:11 I received this patient on sign out Briefly, she presents to the ER with a complaint of chest pain and dizziness Pt labs sent Head CT pending EKG non ischemic CT head no evidence of an acute intracranial process, intracranial hemorrhage or mass effect Plan: Place on observation given chest pain Clinical Impression: chest pain, initial presentation Dizziness, initial presentation *DC/Admit/Observation/Transfer Diagnosis at time of Disposition: Vertigo Chest pain Qualifiers: Chest pain type: unspecified Qualified Code(s): R07.9 - Chest pain, unspecified - Discharge Dispostion Condition at time of disposition: Stable Admit: Yes - Referrals Referrals: Lucas Swanson [Primary Care Provider] - - Patient Instructions - Post Discharge Activity
--- NOTE | 2017-11-24 20:52 | HP ---
CHIEF COMPLAINT: Dizziness and chest pain x 1 week PCP: Dr. Swanson HISTORY OF PRESENT ILLNESS: 62 year-old female with a PMH significant for vertigo past medical history of vertigo, who presents to the ED complaining of dizziness and chest pain x 1 week. She describes her dizziness as "room spinning," worse in the morning, when lying down, with positional changes, and when turning her head. She reports nausea and vomiting x 2 days. She reports chest pain radiating to her right breast x 1 week. She has never had a mammogram. The patient reports dysuria and headache. Patient denies fever, sweats, chills. Denies diarrhea. Seen in ED on 09/02/17 for similar complaints. ER course was notable for: (1) Vital signs stable (2) CT head negative for acute process (3) Meclizine x 1; Reglan x 1; NS x 1L Recent Travel: No PAST MEDICAL HISTORY: Vertigo PAST SURGICAL HISTORY: Social History: Smoking: Alcohol: Drugs: Family History: Allergies amoxicillin Allergy (Verified 11/24/17 14:39) HOME MEDICATIONS: Home Medications Medication Instructions Recorded Azithromycin [Zithromax Tri-Drake (3 500 mg PO DAILY #3 tablet 09/11/17 DAYS) -] REVIEW OF SYSTEMS CONSTITUTIONAL: Absent: fever, chills, diaphoresis, generalized weakness, malaise, loss of appetite, weight change HEENT: Absent: rhinorrhea, nasal congestion, throat pain, throat swelling, difficulty swallowing, mouth swelling, ear pain, eye pain, visual changes CARDIOVASCULAR: Absent: chest pain, syncope, palpitations, irregular heart rate, lightheadedness , peripheral edema RESPIRATORY: Absent: cough, shortness of breath, dyspnea with exertion, orthopnea, wheezing, stridor, hemoptysis GASTROINTESTINAL: Absent: abdominal pain, abdominal distension, nausea, vomiting, diarrhea, constipation, melena, hematochezia GENITOURINARY: Absent: dysuria, frequency, urgency, hesitancy, hematuria, flank pain, genital pain MUSCULOSKELETAL: Absent: myalgia, arthralgia, joint swelling, back pain, neck pain SKIN: Absent: rash, itching, pallor HEMATOLOGIC/IMMUNOLOGIC: Absent: easy bleeding, easy bruising, lymphadenopathy, frequent infections ENDOCRINE: Absent: unexplained weight gain, unexplained weight loss, heat intolerance, cold intolerance NEUROLOGIC: Absent: headache, focal weakness or paresthesias, dizziness, unsteady gait, seizure, mental status changes, bladder or bowel incontinence PSYCHIATRIC: Absent: anxiety, depression, suicidal or homicidal ideation, hallucinations. PHYSICAL EXAMINATION Vital Signs - 24 hr 11/24/17 11/24/17 11/24/17 14:36 16:30 18:35 Temperature 98.4 F 98.1 F Pulse Rate 66 Pulse Rate [ 62 58 L Apical] Respiratory 18 18 Rate Blood Pressure 130/57 Blood Pressure 128/60 121/61 [Arm] O2 Sat by Pulse 99 100 100 Oximetry (%) 11/24/17 20:42 Temperature 97.9 F Pulse Rate Pulse Rate [ 67 Apical] Respiratory 20 Rate Blood Pressure Blood Pressure 131/68 [Arm] O2 Sat by Pulse 100 Oximetry (%) GENERAL: Awake, alert, and fully oriented, in no acute distress. HEAD: Normal with no signs of trauma. EYES: Pupils equal, round and reactive to light, extraocular movements intact, sclera anicteric, conjunctiva clear. No lid lag. EARS, NOSE, THROAT: Ears normal, nares patent, oropharynx clear without exudates. Moist mucous membranes. NECK: Normal range of motion, supple without lymphadenopathy, JVD, or masses. LUNGS: Breath sounds equal, clear to auscultation bilaterally. No wheezes, and no crackles. No accessory muscle use. HEART: Regular rate and rhythm, normal S1 and S2 without murmur, rub or gallop. ABDOMEN: Soft, nontender, not distended, normoactive bowel sounds, no guarding, no rebound, no masses. No hepatomegaly or splenomegaly. MUSCULOSKELETAL: Normal range of motion at all joints. No bony deformities or tenderness. No CVA tenderness. UPPER EXTREMITIES: 2+ pulses, warm, well-perfused. No cyanosis. No clubbing. No peripheral edema. LOWER EXTREMITIES: 2+ pulses, warm, well-perfused. No calf tenderness. No peripheral edema. NEUROLOGICAL: Cranial nerves II-XII intact. Normal speech. Normal gait. PSYCHIATRIC: Cooperative. Good eye contact. Appropriate mood and affect. SKIN: Warm, dry, normal turgor, no rashes or lesions noted, normal capillary refill. Laboratory Results - last 24 hr 11/24/17 11/24/17 11/24/17 15:50 15:50 16:15 WBC 5.6 RBC 4.29 Hgb 12.7 Hct 36.6 MCV 85.1 MCH 29.5 MCHC 34.6 RDW 13.1 Plt Count 169 MPV 8.8 Neutrophils % 47.5 D Lymphocytes % 40.5 H D Monocytes % 7.2 Eosinophils % 4.0 D Basophils % 0.8 Sodium 140 Potassium 4.2 Chloride 108 H Carbon Dioxide 26 Anion Gap 6 L BUN 15 Creatinine 0.7 Creat Clearance w eGFR > 60 Random Glucose 135 H Calcium 7.9 L Magnesium 2.3 Total Bilirubin 0.3 AST 20 ALT 11 L Alkaline Phosphatase 98 Creatine Kinase 113 Troponin I < 0.02 Total Protein 6.9 Albumin 3.6 Urine Color Ltyellow Urine Appearance Clear Urine pH 6.0 Ur Specific [place] 1.017 Urine Protein Negative Urine Glucose (UA) Negative Urine Ketones Negative Urine Blood Negative Urine Nitrite Negative Urine Bilirubin Negative Urine Urobilinogen 2.0 H Ur Leukocyte Esterase Negative ASSESSMENT/PLAN: 62 year-old female with a PMH significant for vertigo past medical history of vertigo. Placed on observation for complaint of chest pain. Patient now describes as right breast pain/fullness. Vertigo --room spinnng dizziness consistent with past episodes --CT head negative --meclizine PRN Right sided chest pain --serial troponins --ECG not suggestive of acute ischemic event --CXR --ASA, protonix --telemetry monitoring Right breast pain/fullness --right breast manual exam unremarkable --strongly recommend patient get outpatient mammogram which she has never had FEN Fluids: PO intake adequate Electrolytes: replete as indicated Nutrition: regular diet DVT prophylaxis: oob, ambulation Dispo: continues to require observation. Full code. Visit type - Emergency Visit Emergency Visit: Yes ED Registration Date: 11/24/17 Care time: The patient presented to the Emergency Department on the above date and was hospitalized for further evaluation of their emergent condition. - New Patient This patient is new to me today: Yes Date on this admission: 12/03/17 - Critical Care Critical Care patient: No Hospitalist Screening - Colonoscopy Questionnaire Colonoscopy Questionnaire: Colonoscopy Questionnaire - Patient: 50 - 75 years old and never had a screening colonoscopy: Unknown History of colon or rectal polyps, or CA: Unknown History of IBD, Crohn's disease or UC: Unknown History of abdominal radiation therapy as a child: Unknown - Relative: 1 with colon or rectal CA, or polyps at age 60 or younger: Unknown Colon or rectal CA diagnosed at age 45 or younger: Unknown Multiple relatives with colon or rectal CA: Unknown - Outcome: Screening Result: Negative Screen
[2017-11-24] MEDS ORDERED: MECLIZINE HCL 25 MG TABLET (FP) PO PRN (22:26)
[2017-11-24] MEDS ORDERED: ACETAMINOPHEN 325 MG TABLET (FP) PO PRN (22:26)
[2017-11-24] MEDS ORDERED: ASPIRIN 325 MG ENTERIC COATED TABLET (FP) PO STA (22:27)
[2017-11-24] MEDS ORDERED: PANTOPRAZOLE 40 MG TABLET (FP) PO STA (22:28)
[2017-11-24] MEDS ORDERED: PANTOPRAZOLE 40 MG TABLET (FP) PO SCH (22:29)
[2017-11-25 02:01] VITALS: BMI 25.2
[2017-11-25 07:03] LABS: BASO % 0.7 % (0-2.0); EOS % 4.7 % (0-4.5); HEMATOCRIT 38.3 % (32.4-45.2); LYMPH % 48.9 % (8-40); MCH 29.1 pg (25.7-33.7); MEAN CELL VOLUME 85.5 fl (80-96); MEAN PLT VOLUME 8.9 fl (7.5-11.1); MONO % 5.1 % (3.8-10.2); NEUT % 40.6 % (42.8-82.8); PLATELET COUNT 180 K/MM3 (134-434); RBC 4.47 M/mm3 (3.60-5.2); RDW 13.1 % (11.6-15.6); WHITE BLOOD COUNT 5.8 K/mm3 (4.0-10.0)
[2017-11-25 07:05] LABS: ALBUMIN 3.6 g/dl (3.4-5.0); ANION GAP 4 (8-16); BLOOD UREA NITROGEN 17 mg/dL (7-18); CALCIUM 8.1 mg/dL (8.5-10.1); CHLORIDE 112 mmol/L (98-107); CO2 28 mmol/L (21-32); GLUCOSE,RANDOM 85 mg/dL (74-106); MAGNESIUM 2.3 mg/dL (1.8-2.4); POTASSIUM 4.7 mmol/L (3.5-5.1); SODIUM 144 mmol/L (136-145)
[2017-11-25 07:09] LABS: ALK PHOS 96 U/L (45-117); BILIRUBIN,TOTAL 0.4 mg/dL (0.2-1.0); CREATININE 0.8 mg/dL (0.55-1.02); SGOT/AST 15 U/L (15-37); SGPT/ALT 10 U/L (12-78); TOT PROT 6.6 g/dl (6.4-8.2)
[2017-11-25] MEDS ORDERED: MECLIZINE HCL 25 MG TABLET (FP) PO PRN (08:01)
[2017-11-25] MEDS ORDERED: ACETAMINOPHEN 325 MG TABLET (FP) PO PRN (08:01)
[2017-11-25] MEDS: PANTOPRAZOLE 40 MG TABLET (FP) PO SCH (10:10)
--- NOTE | 2017-11-25 10:57 | PN ---
Progress Note, Physician - Current Medication List Current Medications: Active Medications Acetaminophen (Tylenol -) 650 mg PO Q6H PRN PRN Reason: PAIN LEVEL 1-5 Meclizine HCl (Antivert -) 25 mg PO Q8H PRN PRN Reason: dizziness Pantoprazole Sodium (Protonix -) 40 mg PO DAILY ROYCE Last Admin: 11/25/17 10:10 Dose: 40 mg - Objective Vital Signs: Vital Signs Temperature 98.5 F 11/25/17 09:00 Pulse Rate 68 11/25/17 09:00 Respiratory Rate 18 11/25/17 09:00 Blood Pressure 108/51 11/25/17 09:00 O2 Sat by Pulse Oximetry (%) 98 11/25/17 09:00 Labs: CBC, BMP 11/25/17 05:00 11/25/17 05:00 Problem List - Problems (1) Chest pain Assessment/Plan: --Right sided chest pain --serial troponins --ECG not suggestive of acute ischemic event --CXR --ASA, protonix --radiation monitor --cardiology Code(s): R07.9 - CHEST PAIN, UNSPECIFIED Qualifiers: Chest pain type: unspecified Qualified Code(s): R07.9 - Chest pain, unspecified (2) Vertigo Assessment/Plan: --room spinnng dizziness consistent with past episodes --CT head negative --meclizine PRN Code(s): R42 - DIZZINESS AND GIDDINESS (3) Breast pain, right Assessment/Plan: --strongly recommend patient get outpatient mammogram which she has never had Code(s): N64.4 - MASTODYNIA
[2017-11-25 11:33] LABS: CHOLESTEROL 158 mg/dL (50-200); TRIGLYCERIDES 84 mg/dL (35-160)
[2017-11-25 11:40] LABS: HDL CHOLESTEROL 55 mg/dL (40-60)
--- NOTE | 2017-11-25 14:29 | EKG ---
Test Reason : Blood Pressure : / mmHG Vent. Rate : 066 BPM Atrial Rate : 066 BPM P-R Int : 166 ms QRS Dur : 078 ms QT Int : 416 ms P-R-T Axes : 013 068 079 degrees QTc Int : 436 ms NORMAL SINUS RHYTHM NORMAL ECG WHEN COMPARED WITH ECG OF 24-NOV-2017 15:50, NO SIGNIFICANT CHANGE WAS FOUND Confirmed by MD Allen Daniel ([id number]) on 11/25/2017 2:29:02 PM Referred By: Benjamin OATES Confirmed By:Margarito Allen MD
--- NOTE | 2017-11-25 14:31 | EKG ---
Test Reason : Blood Pressure : / mmHG Vent. Rate : 057 BPM Atrial Rate : 057 BPM P-R Int : 170 ms QRS Dur : 080 ms QT Int : 450 ms P-R-T Axes : 023 061 068 degrees QTc Int : 438 ms SINUS BRADYCARDIA OTHERWISE NORMAL ECG WHEN COMPARED WITH ECG OF 02-SEP-2017 15:52, NO SIGNIFICANT CHANGE WAS FOUND Confirmed by MD Allen Daniel ([id number]) on 11/25/2017 2:31:16 PM Referred By: Confirmed By:Margarito Allen MD
--- NOTE | 2017-11-25 16:20 | CON.CARD ---
Consult Consult Specialty:: Cardiology Consult Reason for Consultation:: Chest Pain - History of Present Illness Chief Complaint: Chest Pain and Dizzyness History of Present Illness: This is a 62 year old female with a PMH of vertigo in the past. She presents to the ED now with positional vertigo. She also has been complaining of chest pain for about one week. The pain involves her right breast and does not radiate. The pain is not related to exertion and has no associated SOB, nausea, or diaphoresis. EKG 11/25/17 NSR at 66 BPM with normal intervals, normal axis, and NSSTTW changes. Troponin Levels negative. - Alcohol/Substance Use Hx Alcohol Use: No - Smoking History Smoking history: Never smoked Have you smoked in the past 12 months: No Home Medications - Allergies Allergies/Adverse Reactions: Allergies Allergy/AdvReac Type Severity Reaction Status Date / Time amoxicillin Allergy Verified 11/24/17 14:39 - Home Medications Home Medications: Ambulatory Orders Azithromycin [Zithromax Tri-Drake (3 DAYS) -] 500 mg PO DAILY #3 tablet 09/11/17 Review of Systems Findings/Remarks: As per HPI Vital Signs: Vital Signs Temperature 98.5 F 11/25/17 14:00 Pulse Rate 65 11/25/17 14:00 Respiratory Rate 20 11/25/17 14:00 Blood Pressure 117/58 11/25/17 14:00 O2 Sat by Pulse Oximetry (%) 98 11/25/17 12:00 Constitutional: Yes: Well Nourished Eyes: Yes: WNL HENT: Yes: WNL Respiratory: Yes: CTA Bilaterally Gastrointestinal: Yes: Soft Cardiovascular: Yes: Regular Rate and Rhythm Heart Sounds: Yes: S1, S2 (No MRHG) Extremities: Yes: WNL Edema: No Neurological: Yes: WNL, Alert, Oriented (Non Focal) - Other Data Labs, Other Data: CBC, BMP 11/25/17 05:00 11/25/17 05:00 Troponin, BNP 11/24/17 11/24/17 11/25/17 15:50 22:15 05:00 Troponin I < 0.02 < 0.02 < 0.02 11/25/17 05:00 Troponin I Cancelled Troponin, BNP 11/24/17 11/24/17 11/25/17 15:50 22:15 05:00 Troponin I < 0.02 < 0.02 < 0.02 11/25/17 05:00 Troponin I Cancelled Assessment/Plan Chest Pain: Atypical sharp breast pain Troponin Levels negative EKG non acute Would evaluate with an outpatient stress test, can do an EKG only stress test given low risk
[2017-11-26] MEDS: PANTOPRAZOLE 40 MG TABLET (FP) PO SCH (09:25)
--- NOTE | 2017-11-26 17:17 | DS ---
Physical Examination Vital Signs: Vital Signs Temperature 97.8 F 11/26/17 13:33 Pulse Rate 64 11/26/17 13:33 Respiratory Rate 18 11/26/17 13:33 Blood Pressure 128/64 11/26/17 13:33 O2 Sat by Pulse Oximetry (%) 97 11/26/17 09:00 Constitutional: Yes: No Distress Eyes: Yes: WNL HENT: Yes: WNL Neck: Yes: WNL Cardiovascular: Yes: WNL Respiratory: Yes: WNL Gastrointestinal: Yes: WNL Renal/: Yes: WNL Musculoskeletal: Yes: WNL Extremities: Yes: WNL Edema: No Peripheral Pulses WNL: Yes Integumentary: Yes: WNL Wound/Incision: Yes: Clean/Dry Neurological: Yes: WNL ...Motor Strength: WNL Psychiatric: Yes: WNL Labs: CBC, BMP 11/25/17 05:00 11/25/17 05:00 Discharge Summary Reason For Visit: CHEST PAIN Current Active Problems Breast pain, right (Acute) Procedures: Principal: TELEMETRY EVAL Hospital Course: CARDIAC WORKUP NEGATIVE SO FAR, STRESS TEST OUTPATIENT Condition: Stable - Instructions Diet, Activity, Other Instructions: LOW SALT SEE DR SWANSON IN 1 WEEK FOR STRESS TEST Referrals: Lucas Swanson [Primary Care Provider] - Disposition: HOME - Home Medications Comprehensive Discharge Medication List: Ambulatory Orders Azithromycin [Zithromax Tri-Drake (3 DAYS) -] 500 mg PO DAILY #3 tablet 09/11/17 Acetaminophen [Tylenol .Regular Strength -] 650 mg PO Q6H PRN #20 tablet Meclizine HCl [Antivert -] 25 mg PO Q8H PRN #60 tablet 11/26/17 Pantoprazole Sodium [Protonix -] 40 mg PO DAILY #30 tablet.ec 11/26/17
[2017-11-26 19:05] VITALS: BP 121/60; PULSE 65; TEMP 98.1
== END 2017-11-26 19:08 | disposition home or self-care (01) ==
LOC: JER 14:32 → JERBED 19:34 → JER 21:04 → J4W 21:48
PROVIDERS: ADMIT Internal Medicine; ATTEND Family Medicine
PROC: 3E033GC Introduction of Other Therapeutic Substance into Peripheral Vein, Percutaneous Approach (ICD-10-PCS; principal; 2017-11-24)
PROC: 3E0337Z Introduction of Electrolytic and Water Balance Substance into Peripheral Vein, Percutaneous Approach (ICD-10-PCS; 2017-11-24)
DX: R42 Dizziness and giddiness (principal); R07.9 Chest pain, unspecified; N64.4 Mastodynia
CPT/HCPCS: 36415; 70450-TC; 71045-TC-FY; 80053; 80061; 81003; 82550; 83036; 83721; 83735; 84443; 84484; 85025; 93005; 93010; 96374; 99284-25; G0378; J7030